=== PATIENT | female | born 1995 | race Caucasian/White ===

== ENCOUNTER 2018-03-21 18:39 | Inpatient (IN) | payer MEDICAID ==
[~2018-03-21] VITALS: Ht 165.1 cm; Wt 88.2 kg
[2018-03-21] MEDS ORDERED: HALOPERIDOL 5 MG TABLET PO PRN (20:15)
[2018-03-21 20:44] VITALS: BP 120/81
[2018-03-22 00:58] VITALS: BP 119/69
[2018-03-22 09:04] LABS: BASOPHILS % (AUTO) 0.2 % (0.0-2.0); EOSINOPHILS % (AUTO) 1.4 % (1.0-6.0); HEMATOCRIT 36.3 % (36-46); HEMOGLOBIN 12.5 g/dL (12.0-16.0); LYMPHOCYTES # (AUTO) 4.3 K/uL (1.0-4.8); LYMPHOCYTES % (AUTO) 41.8 % (22.0-44.0); MEAN CORPUSCULAR HEMOGLOBIN 30.2 pg (26.0-34.0); MEAN CORPUSCULAR HGB CONC 34.5 G/dL (31.0-37.0); MEAN CORPUSCULAR VOLUME 88 fL (80-100); MONOCYTES # (AUTO) 0.7 K/uL (0.1-1.0); MONOCYTES % (AUTO) 6.7 % (2.0-9.0); NEUTROPHILS # (AUTO) 5.1 K/uL (1.8-7.7); NEUTROPHILS % (AUTO) 49.9 % (40.0-70.0); PLATELET COUNT (AUTO) 297 K/uL (150-450); RED BLOOD CELL COUNT(AUTO) 4.14 MIL/uL (4.00-5.20); RED CELL DISTRIBUTION WIDTH 13.6 % (11.5-14.5)
[2018-03-22 09:58] LABS: HEMOGLOBIN A1C 5.8 % (4.5-6.2)
[2018-03-22 10:23] LABS: ALANINE AMINOTRANSFERASE 68 U/L (12-78); ALBUMIN 3.2 g/dL (3.4-5.0); ALKALINE PHOSPHATASE 59 U/L (46-116); ANION GAP 11 mmol/L (8-16); ASPARTATE AMINOTRANSFERASE 40 U/L (15-37); BILIRUBIN,TOTAL 0.5 mg/dL (0.1-1.0); CALCIUM, TOTAL 8.8 mg/dL (8.8-10.5); CARBON DIOXIDE 26 mmol/L (22-29); CHLORIDE 105 mmol/L (98-107); CHOL/HDL RATIO 5.5 (3.9-5.7); CHOLESTEROL 170 mg/dL (131-200); CREATININE 0.73 mg/dL (0.60-1.30); FREE T4 (FREE THYROXINE) 0.67 ng/dL (0.76-1.46); GLOMERULAR FILTR. RATE CALC > 60 mL/min (>60); GLUCOSE,RANDOM 86 mg/dL (70-110); HCG,QUANTITATIVE < 1 mIU/mL (0-6); HDL CHOLESTEROL 31 mg/dL (40-60); LDL CHOL (CALC.) 111 mg/dL (0-130); SODIUM SERUM 142 mmol/L (136-145); THYROID STIMULATING HORMONE 1.48 uIU/mL (0.36-3.74); TOTAL PROTEIN, SERUM 6.7 g/dL (6.4-8.2); TRIGLYCERIDES 141 mg/dL (15-150); UREA NITROGEN, BLOOD 10 mg/dL (7-18)
[2018-03-22] MEDS ORDERED: ACETAMINOPHEN 325 MG TABLET PO PRN (10:30)
[2018-03-22] MEDS ORDERED: BENZOCAINE/MENTHOL LOZENGE MM PRN (10:30)
[2018-03-22] MEDS ORDERED: LOPERAMIDE HCL 2 MG CAPSULE PO PRN (10:30)
[2018-03-22] MEDS ORDERED: BACITRACIN 28.4 GM OINTMENT TP PRN (10:30)
[2018-03-22] MEDS ORDERED: CloNIDine HCL 0.1 MG TABLET PO PRN (10:30)
[2018-03-22] MEDS ORDERED: PETROLATUM,WHITE 71 GM JELLY TP PRN (10:30)
[2018-03-22] MEDS ORDERED: MAG HYDROX/AL HYDROX/SIMETH ES 30 ML SUSPENSION UDCUP PO PRN (10:30)
[2018-03-22] MEDS ORDERED: ALBUTEROL SULFATE HFA 90 MCG/PUFF 8 GM INHALER IH PRN (10:30)
[2018-03-22] MEDS ORDERED: IBUPROFEN 600 MG TABLET PO PRN (10:30)
[2018-03-22] MEDS ORDERED: ONDANSETRON HCL 4 MG TABLET PO PRN (10:30)
[2018-03-22] MEDS ORDERED: MAGNESIUM HYDROXIDE SUSPENSION 30 ML UDCUP PO PRN (10:30)
[2018-03-22 10:39] VITALS: BP 110/64
[2018-03-22 16:02] VITALS: BP 108/73
[2018-03-22] MEDS: LORazepam 2 MG TABLET PO PRN (20:25)
[2018-03-22 20:27] VITALS: BP 115/80
[2018-03-23 05:44] VITALS: BP 119/70
[2018-03-23 08:04] VITALS: BP 108/66
[2018-03-23] MEDS: DULoxetine HCL 30 MG CAPSULE PO SCH (10:40)
[2018-03-23] MEDS: LORazepam 2 MG TABLET PO PRN (16:03)
[2018-03-23 16:19] VITALS: BP 110/68
[2018-03-23] MEDS: ZOLPIDEM TARTRATE 10 MG TABLET PO PRN (20:40)
[2018-03-24 01:00] VITALS: BP 103/60
[2018-03-24 08:10] VITALS: BP 108/60
[2018-03-24] MEDS: DULoxetine HCL 30 MG CAPSULE PO SCH (08:38)
[2018-03-24] MEDS: ARIPiprazole 10 MG TABLET PO SCH (10:08)
[2018-03-24 16:09] VITALS: BP 116/70
[2018-03-24 23:41] VITALS: BP 121/67
[2018-03-25 00:01] VITALS: BP 121/67
[2018-03-25] MEDS: ZOLPIDEM TARTRATE 10 MG TABLET PO PRN ×2 (00:02→20:16)
[2018-03-25 08:22] VITALS: BP 109/73
[2018-03-25] MEDS: DULoxetine HCL 30 MG CAPSULE PO SCH (08:28)
[2018-03-25] MEDS: ARIPiprazole 10 MG TABLET PO SCH (08:28)
[2018-03-25 16:03] VITALS: BP 112/64
[2018-03-26 01:20] VITALS: BP 100/60
[2018-03-26] MEDS: ARIPiprazole 10 MG TABLET PO SCH (08:11)
[2018-03-26] MEDS: DULoxetine HCL 30 MG CAPSULE PO SCH (08:12)
[2018-03-26 08:28] VITALS: BP 113/74
[2018-03-26 16:10] VITALS: BP 107/66
[2018-03-26] MEDS: ZOLPIDEM TARTRATE 10 MG TABLET PO PRN (22:19)
[2018-03-27 06:34] VITALS: BP 102/52
[2018-03-27 08:14] LABS: HEMOGLOBIN 13.6 g/dL (12.0-16.0); MEAN CORPUSCULAR HEMOGLOBIN 30.4 pg (26.0-34.0); MEAN CORPUSCULAR HGB CONC 34.9 G/dL (31.0-37.0); MEAN CORPUSCULAR VOLUME 87 fL (80-100); PLATELET COUNT (AUTO) 363 K/uL (150-450); RED BLOOD CELL COUNT(AUTO) 4.48 MIL/uL (4.00-5.20); RED CELL DISTRIBUTION WIDTH 13.3 % (11.5-14.5)
[2018-03-27] MEDS: DULoxetine HCL 30 MG CAPSULE PO SCH (08:14)
[2018-03-27] MEDS: ARIPiprazole 10 MG TABLET PO SCH (08:14)
[2018-03-27 08:30] VITALS: BP 112/74
[2018-03-27 08:37] LABS: ANION GAP 10 mmol/L (8-16); CALCIUM, TOTAL 8.9 mg/dL (8.8-10.5); CARBON DIOXIDE 26 mmol/L (22-29); CHLORIDE 102 mmol/L (98-107); CREATININE 0.76 mg/dL (0.60-1.30); GLOMERULAR FILTR. RATE CALC > 60 mL/min (>60); GLUCOSE,RANDOM 86 mg/dL (70-110); PHOSPHORUS 4.5 mg/dL (2.5-4.9); POTASSIUM 3.9 mmol/L (3.5-5.1); SODIUM SERUM 138 mmol/L (136-145); UREA NITROGEN, BLOOD 9 mg/dL (7-18)
[2018-03-27 08:47] LABS: BAND NEUTROPHILS % (MANUAL) 1 % (0-5); LYMPHOCYTES % (MANUAL) 31 % (22-44); MONOCYTES % (MANUAL) 11 % (2-9); SEGMENTED NEUTROPHILS % 57 % (40-70)
[2018-03-27] MEDS: LORazepam 2 MG TABLET PO PRN (14:44)
[2018-03-27 16:07] VITALS: BP 124/78
[2018-03-28 00:38] VITALS: BP 110/63
[2018-03-28 07:53] LABS: BASOPHILS % (AUTO) 0.5 % (0.0-2.0); EOSINOPHILS % (AUTO) 1.7 % (1.0-6.0); HEMATOCRIT 37.4 % (36-46); LYMPHOCYTES % (AUTO) 32.1 % (22.0-44.0); MEAN CORPUSCULAR HEMOGLOBIN 29.8 pg (26.0-34.0); MEAN CORPUSCULAR HGB CONC 34.7 G/dL (31.0-37.0); MEAN CORPUSCULAR VOLUME 86 fL (80-100); MONOCYTES # (AUTO) 0.9 K/uL (0.1-1.0); MONOCYTES % (AUTO) 7.2 % (2.0-9.0); NEUTROPHILS # (AUTO) 7.3 K/uL (1.8-7.7); NEUTROPHILS % (AUTO) 58.5 % (40.0-70.0); PLATELET COUNT (AUTO) 365 K/uL (150-450); RED BLOOD CELL COUNT(AUTO) 4.34 MIL/uL (4.00-5.20); RED CELL DISTRIBUTION WIDTH 13.5 % (11.5-14.5)
[2018-03-28] MEDS: ARIPiprazole 10 MG TABLET PO SCH (08:25)
[2018-03-28] MEDS: DULoxetine HCL 30 MG CAPSULE PO SCH (08:25)
[2018-03-28 08:30] VITALS: BP 116/71
[2018-03-28 09:42] LABS: APPEARANCE,URINE CLOUDY (CLEAR); BILIRUBIN,URINE NEGATIVE (NEGATIVE); GLUCOSE, URINE (UA) NEGATIVE (NEGATIVE); KETONES,URINE NEGATIVE (NEGATIVE); LEUKOCYTE ESTERASE ,URINE MODERATE (NEGATIVE); NITRATE,URINE NEGATIVE (NEGATIVE); PROTEIN,URINE POS 1+ (NEGATIVE)
[2018-03-28 10:28] LABS: BACTERIA,URINE Moderate /HPF (None Seen); OCCULT BLOOD,URINE MODERATE (NEGATIVE); SQUAMOUS EPITHELIAL CELL,UR Many /LPF (None Seen)
[2018-03-28] MEDS: LORazepam 2 MG TABLET PO PRN (12:17)
[2018-03-28 16:03] VITALS: BP 123/81
[2018-03-28] MEDS: NITROFURANTOIN/NITROFURAN MAC 100 MG CAPSULE [MACROBID] PO SCH (17:00)
[2018-03-28 23:50] VITALS: BP 101/75
[2018-03-29] MEDS: LORazepam 2 MG TABLET PO PRN ×2 (00:05→17:13)
[2018-03-29 00:09] VITALS: BP 101/75
[2018-03-29 08:30] VITALS: BP 104/60
[2018-03-29] MEDS: NITROFURANTOIN/NITROFURAN MAC 100 MG CAPSULE [MACROBID] PO SCH ×2 (08:38→16:35)
[2018-03-29] MEDS: DULoxetine HCL 30 MG CAPSULE PO SCH (08:38)
[2018-03-29] MEDS: ARIPiprazole 10 MG TABLET PO SCH (08:38)
[2018-03-29 16:28] VITALS: BP 108/66
[2018-03-29 17:13] VITALS: BP 115/69
[2018-03-29] MEDS: ZOLPIDEM TARTRATE 10 MG TABLET PO PRN (21:27)
[2018-03-30] VITALS: BP 113/60
[2018-03-30 07:46] LABS: BASOPHILS % (AUTO) 0.2 % (0.0-2.0); EOSINOPHILS % (AUTO) 1.8 % (1.0-6.0); HEMOGLOBIN 13.4 g/dL (12.0-16.0); LYMPHOCYTES # (AUTO) 4.4 K/uL (1.0-4.8); LYMPHOCYTES % (AUTO) 30.3 % (22.0-44.0); MEAN CORPUSCULAR HEMOGLOBIN 30.4 pg (26.0-34.0); MEAN CORPUSCULAR HGB CONC 35.4 G/dL (31.0-37.0); MEAN CORPUSCULAR VOLUME 86 fL (80-100); MONOCYTES # (AUTO) 0.9 K/uL (0.1-1.0); NEUTROPHILS # (AUTO) 8.9 K/uL (1.8-7.7); NEUTROPHILS % (AUTO) 61.7 % (40.0-70.0); PLATELET COUNT (AUTO) 383 K/uL (150-450); RED BLOOD CELL COUNT(AUTO) 4.42 MIL/uL (4.00-5.20); RED CELL DISTRIBUTION WIDTH 13.6 % (11.5-14.5)
[2018-03-30 08:15] VITALS: BP 124/74
[2018-03-30 08:36] LABS: ANION GAP 11 mmol/L (8-16); CALCIUM, TOTAL 8.9 mg/dL (8.8-10.5); CARBON DIOXIDE 25 mmol/L (22-29); CHLORIDE 101 mmol/L (98-107); CREATININE 0.48 mg/dL (0.60-1.30); GLOMERULAR FILTR. RATE CALC > 60 mL/min (>60); GLUCOSE,RANDOM 79 mg/dL (70-110); PHOSPHORUS 5.1 mg/dL (2.5-4.9); POTASSIUM 4.1 mmol/L (3.5-5.1); SODIUM SERUM 137 mmol/L (136-145); UREA NITROGEN, BLOOD 11 mg/dL (7-18)
[2018-03-30] MEDS: DULoxetine HCL 30 MG CAPSULE PO SCH (08:56)
[2018-03-30] MEDS: NITROFURANTOIN/NITROFURAN MAC 100 MG CAPSULE [MACROBID] PO SCH ×2 (08:56→16:00)
[2018-03-30] MEDS: ARIPiprazole 10 MG TABLET PO SCH (08:56)
[2018-03-30] MEDS ORDERED: DULO30CA2 PO (11:57)
[2018-03-30] MEDS ORDERED: MACR100 PO (11:57)
[2018-03-30] MEDS ORDERED: ARIP10TA8 PO (11:57)
== END 2018-03-30 16:25 | disposition home or self-care (01) | DRG 751 ==
LOC: B2S 20:08
PROVIDERS: ADMIT Psychiatry & Neurology Psychiatry; ATTEND Psychiatry & Neurology Psychiatry
DX: F33.9 Major depressive disorder, recurrent, unspecified (principal); R45.851 Suicidal ideations; N39.0 Urinary tract infection, site not specified; E28.2 Polycystic ovarian syndrome; F15.10 Other stimulant abuse, uncomplicated; E66.9 Obesity, unspecified; F41.9 Anxiety disorder, unspecified; G47.00 Insomnia, unspecified
CPT/HCPCS: 83036; 83735; 84100; 84439; 84443; 85007; 87081; 87086